=== PATIENT | female | born 1995 | race Caucasian/White ===

== ENCOUNTER 2020-08-23 12:15 | Emergency (ER) | payer MEDICAID, SELFPAY ==
[2020-08-23 12:26] VITALS: BP 164/93; PULSE 83; RESP 16; TEMP 36.6; O2SAT 99; BMI 22.2
[2020-08-23 12:30] VITALS: BP 139/91; PULSE 73; RESP 18; O2SAT 95
--- NOTE | 2020-08-23 12:30 | ED_ITS ---
HPI - Female Genitourinary General: Chief complaint: Vaginal Bleeding Stated complaint: Allergic reaction Time Seen by Provider: 08/23/20 12:25 History of Present Illness: HPI Narrative: The patient is a 25-year-old female who comes to the ER complaining of genital pain for the past several days. She said she was having some mild vaginal discharge several days ago and thought it was a yeast infection and treated it which the discharge improved. She said the pain has increased each day in the past 3 days it has been unbearable. She says she has lesions that she can see as well. She is sexually active with the same male for the past 4 months. She is unsure if he has been exclusive. Associated symptoms: Deny abdominal pain or headache(s) Review of Systems General: Reports: 10 or more systems reviewed and unremarkable except in HPI and below Const: Denies: fatigue Eyes: Denies: change in vision, blurry vision or eye redness ENMT: Denies: throat pain, swelling of lips/tongue, ear or mastoid pain or nasal congestion Card: Denies: chest pain, palpitations, irregular heart rhythm, edema, dyspnea on exertion or orthopnea Resp: Denies: dyspnea, productive cough or non-productive cough GI: Denies: abdominal pain, diarrhea or GI cramping : Reports: genital lesions and other (labial pain); Denies: flank pain, difficulty voiding, urinary frequency or urinary urgency Musc: Denies: neck pain, back pain, extremity pain, joint pain, joint redness, limited range of motion or muscle weakness Skin/Breast: Denies: rash, pruritus, erythema, skin pain or skin tenderness Neuro: Denies: headache(s), numbness in extremities, weakness in extremities, sensory changes, difficulty walking, dizziness, confusion or Slurred speech present Psych: Denies: anxiety or depression Endo: Denies: polyuria All/Imm: Denies: urticaria, throat swelling or tongue swelling Physical Exam Const: COMMON NORMALS: no acute distress, average body habitus, patient oriented x3, no limitations, healthy appearing, alert and well nourished GENERAL APPEARANCE: cooperative, comfortable, well kempt and well developed ORIENTATION/CONSCIOUSNESS: Yes awake, Yes oriented to person, Yes oriented to place and Yes oriented to time HENMT: COMMON NORMALS: normocephalic, external ears normal and Normal external nose present HEAD & SCALP: normal to inspection and normocephalic NOSE: Normal external nose present EXTERNAL EAR: Yes external ears normal MOUTH: Normal oral and palatal mucosa present THROAT: posterior oropharynx normal Eye: COMMON NORMALS: Equal, round and reactive pupils present and EOMs intact bilaterally GENERAL EYE: appearance normal, both eyes and all related structures PUPIL: Yes Equal, round and reactive pupils present Neck/C-Spine: COMMON NORMALS: full ROM, no lymphadenopathy, no meningeal signs and no JVD GENERAL: Yes normal visual inspection Lymph: LYMPHATIC: no lymphadenopathy noted Chest: COMMONS NORMALS: normal inspection of the chest and normal palpation of entire chest wall Resp: COMMON NORMALS: normal respiratory effort, No retractions, No use of accessory muscles, clear to auscultation bilaterally and percussion normal EFFORT & INSPECTION: Yes able to speak in complete sentences AUSCULTATION: clear to auscultation bilaterally PERCUSSION: percussion normal Cardio: COMMON NORMALS: no JVD, regular rate, regular rhythm, S1 normal heart sound present, S2 normal heart sound present and Peripheral pulses 2+ throughout RATE: regular rate RHYTHM: regular rhythm HEART SOUNDS: S1 normal heart sound present and S2 normal heart sound present PERIPHERAL PULSES: Peripheral pulses 2+ throughout GI: COMMON NORMALS: Normal to inspection, nondistended, normoactive bowel sounds present, Soft to palpation, non-tender and no masses INSPECTION: Yes normal to inspection PALPATION: Yes Soft to palpation : COMMON NORMALS: Yes no CVA tenderness BLADDER/KIDNEY EXAM: Yes no CVA tenderness SPECULUM EXAM - CERVIX: No Cervical tenderness present BIMANUAL EXAM - VAGINA & UTERUS: No Cervical tenderness present OB/EXTERNAL & SP ECULUM: herpetic lesions OTHER: no cervical motion tenderness. Herpetic lesions on labia minora posteriorly Back/Pelvis: COMMON NORMALS: no CVA tenderness, thoracic and lumbar spine normal to inspection, no thoracic nor lumbar tenderness and thoraco-lumbar ROM normal Extremity: COMMON NORMALS: normal to inspection, full ROM, capillary refill normal, no joint enlargement and no pedal edema GENERAL: Yes normal exam except as noted Neuro: COMMON NORMALS: patient oriented x3, CN's II-XII intact bilaterally, moves all extremities, no focal motor deficits, no sensory deficits noted and gait normal SENSORIUM/ORIENTATION: Yes alert, Yes oriented to person, Yes oriented to place and Yes oriented to time MENINGEAL SIGNS: Yes no meningeal signs Psych: COMMON NORMALS: mental status grossly normal, Normal thought process present, cooperative, normal affect and speech normal APPEARANCE: Yes well kempt ATTITUDE: Yes calm SPEECH: Yes normal speech THOUGHT PROCESS: Normal thought process present Skin: COMMON NORMALS: no rashes or lesions noted GENERAL SKIN EXAM: no rashes or lesions noted Course Vital Signs: Vital signs: Vital Signs Temperature 97.9 F 08/23/20 12:26 Pulse Rate 62 08/23/20 13:21 Respiratory Rate 18 08/23/20 13:21 Blood Pressure 125/85 08/23/20 13:21 Pulse Oximetry 96 08/23/20 13:21 MDM - Female MDM Narrative: Medical decision making narrative: The patient was diagnosed with acute herpetic genital infection today. Given Cipro and acyclovir to discharge home with. Primary care in a week. Discussed sexual safe practices. Lab Data: Labs: Lab Results 08/23/20 08/23/20 Range/Units 13:10 13:10 HCG, Qual Negative (Negative) Urine Color Yellow (Yellow) Urine Appearance Clear (CLEAR) Urine pH 7 (5-7) Ur Specific Gravit y 1.010 (1.005-1.030) Urine Protein Neg (Negative) Urine Glucose (UA) Norm (Normal) Urine Ketones Negative (Negative) Urine Blood Neg (Negative) Urine Nitrate Negative (Negative) Urine Bilirubin Neg (Negative) Urine Urobilinogen 1 H (Negative) mg/dL Ur Leukocyte Aubrie ase Trace H (Negative) Urine RBC 0-4 H (0-2) /hpf Urine WBC 5-10 H (0-5) /hpf Ur Squamous Epith Cells 10-15 H (0-5) /hpf Amorphous Sediment Not Reportable Urine Bacteria Trace (NONE) /hpf Discharge Plan Discharge Patient Disposition: Home Clinical Impression: Genital herpes Condition: Stable Prescriptions: New acyclovir 400 mg tablet 400 mg PO TID Qty: 30 RF: 0 ciprofloxacin HCl 500 mg tablet 500 mg PO Q12H Qty: 10 RF: 0 Discharge Orders: Discharge ED (Routine); Ordered 08/23/20 Ordered By: Lamont Esposito Referrals: Yan Ballard MD [Primary Care Provider] - Discharge Diet: Advance as tolerated Discharge Activity: Resume usual activity Patient Instructions: Genital Herpes - Female, Opioid Safety Activity Restrictions/Additional Instructions: You came in with pain to the genital region and it is likely a herpes infection. Please take the acyclovir as it battles the herpes virus and may speed your recovery albeit slowly. Take the antibiotics as well to treat a small likely urine infection and return to the ER with worsening symptoms otherwise follow-up with your primary care physician in a week or so for a recheck. Abstain from sexual activity until lesions are healed and use protection thereafter. Please keep in mind herpes can be spread even when no signs of infection are present. Coding Level of Care Code ED Vehicle Modification Technician for Igor Fwd Exam Comprehensive
[2020-08-23 13:21] VITALS: BP 125/85; PULSE 62; RESP 18; O2SAT 96
[2020-08-23 13:37] LABS: HCG Qualitative Urine. Negative (Negative)
[2020-08-23 13:52] LABS: Add Urine Microscopic? YES; Bilirubin Urine Neg (Negative); Blood Urine Neg (Negative); Glucose Urine UA Norm (Normal); Ketones Urine Negative (Negative); Leukocyte Esterase Urine Trace (Negative); Nitrate Urine Negative (Negative); Protein Urine Neg (Negative); Urine Appearance Clear (CLEAR); Urine Color Yellow (Yellow); Urobilinogen Urine 1 mg/dL (Negative); pH Urine 7 (5-7)
[2020-08-23 13:53] LABS: Add Urine Culture? No; Bacteria Urine TRACE /hpf; RBC Urine 0-4 /hpf (0-2)
[2020-08-23] MEDS: acyclovir 400 mg Tablet PO (14:11)
[2020-08-23] MEDS: lidocaine 2% viscous 15 mL UDC MUCOUS MEM (14:23)
[2020-08-23 15:00] VITALS: BP 131/82; PULSE 67; RESP 18; O2SAT 96
[2020-08-23] MEDS: ciprofloxacin 500 mg Tablet PO (15:28)
[2020-08-23 16:02] VITALS: BP 131/82; PULSE 81; RESP 18; TEMP 37.2; O2SAT 99
== END 2020-08-23 16:04 | disposition home or self-care (01) ==
PROVIDERS: Emergency Provider Family Medicine; PCP Family Medicine
DX: A60.04 Herpesviral vulvovaginitis (principal)
CPT/HCPCS: 12345; 81001; 81025; 87081; 87210; 87529; 87591; 99281; 99283; J8499

== ENCOUNTER → 2020-10-09 09:34 | Outpatient (BNVA) | payer MEDICAID, SELFPAY | PROVIDERS: PCP Family Medicine; Visit Provider Obstetrics & Gynecology | DX: Z34.01 Encounter for supervision of normal first pregnancy, first trimester (principal) | CPT/HCPCS: 80307; 84315; 85025; 86592; 86762; 86803; 86850; 86900; 87086; 87340; 87491; 87591; 87806 ==

== ENCOUNTER → 2020-10-23 09:14 | Outpatient (BNVA) | payer MEDICAID, SELFPAY | PROVIDERS: PCP Family Medicine; Visit Provider Obstetrics & Gynecology | DX: Z34.01 Encounter for supervision of normal first pregnancy, first trimester (principal) | CPT/HCPCS: 84315; 87491; 87591; 88175 ==

== ENCOUNTER → 2020-11-23 12:59 | Outpatient (BNVA) | payer MEDICAID, SELFPAY | PROVIDERS: PCP Family Medicine; Visit Provider Nurse Practitioner Women's Health | DX: O21.9 Vomiting of pregnancy, unspecified (principal) | CPT/HCPCS: 81000 ==

== ENCOUNTER → 2020-12-05 08:14 | Outpatient (BNVA) | payer MEDICAID, SELFPAY | PROVIDERS: PCP Family Medicine; Visit Provider Obstetrics & Gynecology | DX: Z34.80 Encounter for supervision of other normal pregnancy, unspecified trimester (principal); R39.9 Unspecified symptoms and signs involving the genitourinary system | CPT/HCPCS: 81000; 87077; 87086; 87184 ==

== ENCOUNTER → 2020-12-29 08:25 | Outpatient (BNVA) | payer MEDICAID, SELFPAY | PROVIDERS: PCP Family Medicine; Visit Provider Obstetrics & Gynecology | DX: O21.9 Vomiting of pregnancy, unspecified (principal) | CPT/HCPCS: 81000 ==

== ENCOUNTER → 2021-01-18 11:15 | Outpatient (BNVA) | payer MEDICAID, SELFPAY | PROVIDERS: PCP Family Medicine; Visit Provider Nurse Practitioner Women's Health | DX: Z34.01 Encounter for supervision of normal first pregnancy, first trimester (principal) | CPT/HCPCS: 81000 ==

== ENCOUNTER → 2021-02-16 14:23 | Outpatient (BNVA) | payer MEDICAID, SELFPAY | PROVIDERS: PCP Family Medicine; Visit Provider Obstetrics & Gynecology | DX: Z34.01 Encounter for supervision of normal first pregnancy, first trimester (principal) | CPT/HCPCS: 81000; 82950; 85025 ==

== ENCOUNTER → 2021-03-02 07:55 | Outpatient (BNVA) | payer MEDICAID, SELFPAY | PROVIDERS: PCP Family Medicine; Visit Provider Obstetrics & Gynecology | DX: Z34.01 Encounter for supervision of normal first pregnancy, first trimester (principal) | CPT/HCPCS: 81000 ==

== ENCOUNTER → 2021-03-15 09:51 | Outpatient (BNVA) | payer MEDICAID, SELFPAY | PROVIDERS: PCP Family Medicine; Visit Provider Obstetrics & Gynecology | DX: Z34.01 Encounter for supervision of normal first pregnancy, first trimester (principal) | CPT/HCPCS: 81000 ==

== ENCOUNTER → 2021-03-29 10:53 | Outpatient (BNVA) | payer MEDICAID, SELFPAY | PROVIDERS: PCP Family Medicine; Visit Provider Nurse Practitioner Women's Health | DX: Z34.01 Encounter for supervision of normal first pregnancy, first trimester (principal) | CPT/HCPCS: 81000 ==

== ENCOUNTER → 2021-04-12 08:33 | Outpatient (BNVA) | payer MEDICAID, SELFPAY | PROVIDERS: PCP Family Medicine; Visit Provider Obstetrics & Gynecology | DX: Z34.01 Encounter for supervision of normal first pregnancy, first trimester (principal) | CPT/HCPCS: 81000; 87081 ==

== ENCOUNTER → 2021-04-19 08:56 | Outpatient (BNVA) | payer MEDICAID, SELFPAY | PROVIDERS: PCP Family Medicine; Visit Provider Obstetrics & Gynecology | DX: Z34.01 Encounter for supervision of normal first pregnancy, first trimester (principal); A60.9 Anogenital herpesviral infection, unspecified | CPT/HCPCS: 81000 ==

== ENCOUNTER → 2021-04-26 09:22 | Outpatient (BNVA) | payer MEDICAID, SELFPAY | PROVIDERS: PCP Family Medicine; Visit Provider Obstetrics & Gynecology | DX: Z34.01 Encounter for supervision of normal first pregnancy, first trimester (principal) | CPT/HCPCS: 81000 ==

== ENCOUNTER 2021-05-03 13:18 | Outpatient (CLI) | payer MEDICAID, SELFPAY ==
[2021-05-03] VITALS (7 sets, daily range): BP systolic 108–137; BP diastolic 70–89; PULSE 82–101; RESP 17; TEMP 36.3; BMI 27.1
[2021-05-03 13:54] LABS: Add Urine Microscopic? NO; Charge for UA Resulting for Rev
[2021-05-03 14:00] LABS: Basophils % 0.2 %; Eosinophils # 0.1 10^3/uL (0.0-0.8); Eosinophils % 0.6 %; Hematocrit 35.6 % (37.0-47.0); Hemoglobin 11.8 g/dL (11.5-15.3); Lymphocytes % 19.4 %; Mean Corpuscular HGB Conc 33.1 g/dL (30.0-36.0); Mean Corpuscular Volume 84.4 fl (81-99); Monocytes # 0.7 10^3/uL (0.2-0.9); Monocytes % 6.5 %; Neutrophils # 7.54 10^3/uL (1.8-7.7); Neutrophils % 72.6 %; Nucleated Red Blood Cells % 0 %; Platelet Count 205 10^3/cmm (130-400); Red Blood Count 4.22 10^6/uL (4.1-5.3); Red Cell Distribution Width 12.5 % (12.1-15.1); White Blood Count 10.4 10^3/uL (4.0-10.0)
[2021-05-03 14:20] LABS: Bilirubin Urine Neg (Negative); Blood Urine Neg (Negative); Glucose Urine UA Norm (Normal); Ketones Urine Negative (Negative); Leukocyte Esterase Urine Negative (Negative); Nitrate Urine Negative (Negative); Protein Urine Neg (Negative); Urine Appearance Clear (CLEAR); Urine Color Yellow (Yellow); Urobilinogen Urine Norm (Negative); pH Urine 7 (5-7)
[2021-05-03 14:30] LABS: Alanine Aminotransferase 6 U/L (0-33); Albumin Level 3.5 g/dL (3.5-5.2); Alkaline Phosphatase 110 IU/L (35-105); Anion Gap 16.7 (5-19); Aspartate Amino Transferase 11 U/L (0-32); Blood Urea Nitrogen 5 mg/dL (6-20); Calcium 8.3 mg/dL (8.5-10.5); Carbon Dioxide 18 mmol/L (22-29); Chloride 103 mmol/L (98-107); Globulin 2.7 g/dL (1.3-4.6); Glomerular Filtration Rate 146.9 mL/min (90-130); Glucose 111 mg/dL (65-115); Osmolality Calculated 276 mOsm/kg (285-295); Potassium 3.7 mmol/L (3.5-5.1); Sodium 134 mmol/L (136-145); Total Bilirubin 0.3 mg/dL (0.15-1.2); Total Protein 6.2 g/dL (6.6-8.7); Uric Acid 3.3 mg/dL (2.4-5.7)
[2021-05-03 14:39] LABS: UPRO/UCREAT Ratio 0.21 mg/mg CR; Urine Creatinine 19 mg/dL (28-217); Urine Protein Random 4 mg/dL
== END 2021-05-03 15:10 | disposition home or self-care (01) ==
LOC: OPOB 13:27 → OBGYN 13:30
PROVIDERS: PCP Family Medicine; Visit Provider Obstetrics & Gynecology
DX: O99.891 Other specified diseases and conditions complicating pregnancy (principal); R03.0 Elevated blood-pressure reading, without diagnosis of hypertension; Z20.822 Contact with and (suspected) exposure to COVID-19
CPT/HCPCS: 36415; 59025; 80053; 81000; 81003; 82570; 84156; 84550; 85025; 87635; 99211

== ENCOUNTER 2021-05-04 18:33 | Inpatient (IN) | payer MEDICAID, SELFPAY ==
[2021-05-04] VITALS (13 sets, daily range): BP systolic 116–150; BP diastolic 67–96; PULSE 64–103; RESP 16; TEMP 36.6; BMI 27.1
[2021-05-04 20:49] LABS: Basophils % 0.2 %; Eosinophils # 0.1 10^3/uL (0.0-0.8); Eosinophils % 0.9 %; Hematocrit 34.7 % (37.0-47.0); Hemoglobin 11.8 g/dL (11.5-15.3); Lymphocytes # 2.3 10^3/uL (0.8-4.8); Lymphocytes % 23.4 %; Mean Corpuscular Hemoglobin 28.9 pg (28.0-34.0); Mean Platelet Volume 10.8 fL (7.4-10.4); Monocytes # 0.6 10^3/uL (0.2-0.9); Monocytes % 5.9 %; Neutrophils # 6.77 10^3/uL (1.8-7.7); Neutrophils % 69.1 %; Nucleated Red Blood Cells % 0 %; Platelet Count 206 10^3/cmm (130-400); Red Blood Count 4.08 10^6/uL (4.1-5.3); Red Cell Distribution Width 12.6 % (12.1-15.1); White Blood Count 9.8 10^3/uL (4.0-10.0)
[2021-05-04] MEDS: miSOPROStol 100 mcg tablet 25 MCG VAGINAL (21:45)
[2021-05-05] VITALS (15 sets, daily range): BP systolic 105–141; BP diastolic 62–89; PULSE 62–98; RESP 16–18; TEMP 36.4–36.9
[2021-05-05] MEDS: miSOPROStol 100 mcg tablet 25 MCG VAGINAL (02:24)
[2021-05-05] MEDS: lactated ringers 1,000 ML 999 ML IV (05:11)
--- NOTE | 2021-05-05 06:20 | ANES.PROC ---
Anesthesia Procedures Procedure/Date: 05/05/21 Other Information: Patient dilated to 10. Diamond agrees to intrathecal. Sterile prep and drape. lido 1% local at L3-4. Introducer needle and #25 Pencan introduced with CSF return. fentanyl 0.5 cc and 0.5 cc of 0.75% marcaine given with excellent relief. Pt tolerated well
--- NOTE | 2021-05-05 07:00 | PM.OPHPUD ---
Labor & Delivery H&P Update Date of Procedure: May 05, 2021 Date H&P Performed: 05/03/21 H&P update information: I have reviewed H&P completed within last 30 days, I have examined patient prior to procedure and No changes to prior documentation Changes to previous documentation: The patient is here for induction at term. No cervical change Admission Diagnosis: IUP at 39 2/7
--- NOTE | 2021-05-05 07:02 | PM.DELIVERY ---
Delivery Note: Date of delivery: May 05, 2021 Pre-delivery diagnoses: iup at 39 2/7 Post-delivery diagnoses: iup @ 39 3/7 delivered Procedure: Op report anesthesia: Other (intra-thecal) Delivering Physician: naomie Estimated blood loss (mL): 10 Findings: term male in cephalic presentation Pre-Delivery Course: The patient was admitted for cytotec induction. She received two doses and about 2 1/2 hours after the placement of the second dose, she started to have pain. She was found to be dilated to 7 cm. An epidural was ordered. She had complete cervical dilation prior to epidural. For this reason, an intrathecal block was placed. After placement of the intrathecal block, the heart rate was found to be in the 60's. AROM of clear fluid was performed to possibly hasten delivery and resolve the deceleration. The heart rate fell to the 60's and in spite of all resuscitative efforts, it stayed there for 5 minutes. Anesthesia was still here and he arrived and gave the patient a dose of ephedrine as she was wheeled back to the OR for a stat . Peds was notified. She was moved onto the OR bed and heart tones were checked prior to induction of anesthesia. They were in the 150's. We remained in the room and were set up to do either a or vaginal delivery. With contractions, the heart rate would drop to the 60's and return back to the 150's. I placed a vacuum to assist with hastening the delivery. She baby moved from the +2 to +3 station. There was a pop off after about 20 seconds. The heart rate remained normal in the 150's after that. She was allowed to push with contractions. Peds arrived as the baby was . Delivery: The patient had complete cervical dilation and began to push. The head delivered in the SELAM position over an intact perineum under intrathecal anesthesia. The nose and mouth were bulb suctioned. The shoulders and body delivered atraumatically. The baby was placed onto the mother's abdomen. The baby had poor tone. The cord was quickly clamped and cut and given to the waiting biodiesel production associate and nurses for resusitation. The placenta delivered spontaneously. It was inspected and found to be intact. There was a true knot in the cord. Inspection of the perineum revealed no lacerations. Estimated blood loss 10 mL. Apgars on baby were to at 1 minute and 7 at 5 minutes and 8 at 10 minutes. Weight of baby is 7 pounds 8 ounces. By 20 minutes of life, the baby was allowed to be skin to skin with mom and was doing well. Mother and baby were stable post delivery. Coding Level of Care Code Acute Maintenance Of Way Clerk for Igor Hirsch
--- NOTE | 2021-05-05 07:20 | PC.NURSE ---
MOVED FROM OBOR2 TO OB9 VIA BED. ORIENTED TO ROOM/CALL LIGHT. INSTRUCTED TO CALL NURSING STAFF FOR ASSISTANCE TO BATHROOM THE FIRST TIME.
--- NOTE | 2021-05-05 10:03 | ANE.PACU2 ---
Inpatient post-anesthesia follow up: Airway intact: Yes Vital signs: Temperature 98.4 F Pulse Rate 64 Respiratory Rate 16 Blood Pressure 141/89 Pulse Oximetry Oxygen Delivery Me thod Room Air Oxygen Flow Rate Fraction of Inspir ed Oxygen Hydration adequate: Yes Nausea and vomiting: No Pain level: 2 Mental status: Baseline
[2021-05-05] MEDS: prenatal vitamin Capsule 1 CAP PO (10:36)
[2021-05-05] MEDS: ibuprofen 800 mg tablet PO ×3 (10:36→21:19)
[2021-05-05] MEDS: docusate sodium 100 mg Capsule PO ×2 (10:36→18:50)
[2021-05-05 19:45] LABS: Hematocrit 33.9 % (37.0-47.0); Hemoglobin 11.4 g/dL (11.5-15.3); Mean Corpuscular HGB Conc 33.6 g/dL (30.0-36.0); Mean Corpuscular Hemoglobin 28.4 pg (28.0-34.0); Mean Corpuscular Volume 84.5 fl (81-99); Mean Platelet Volume 10.9 fL (7.4-10.4); Platelet Count 202 10^3/cmm (130-400); Red Blood Count 4.01 10^6/uL (4.1-5.3); Red Cell Distribution Width 12.5 % (12.1-15.1); White Blood Count 16.7 10^3/uL (4.0-10.0)
[2021-05-06 00:48] VITALS: BP 120/87; PULSE 80; RESP 18; TEMP 36.5
[2021-05-06 04:00] VITALS: BP 127/82; PULSE 53; RESP 18; TEMP 36.6
--- NOTE | 2021-05-06 05:24 | P.PN_ITS ---
Vitals/I&O/Wt Last Vital Signs Temp 97.7 F 05/06/21 00:48 Pulse 80 05/06/21 00:48 Resp 18 05/06/21 00:48 BP 120/87 05/06/21 00:48 Weight last 48 hrs Weight 189 lb Physical Exam Narrative: EXAM NARRATIVE: The patient is doing well this morning. No concerns. Const: COMMON NORMALS: no acute distress, average body habitus, patient oriented x3, no limitations, healthy appearing and alert GENERAL APPEARANCE: cooperative, comfortable, well kempt and well developed ORIENTATION/CONSCIOUSNESS: Yes awake, Yes oriented to person, Yes oriented to place and Yes oriented to time Resp: COMMON NORMALS: normal respiratory effort EFFORT & INSPECTION: Yes able to speak in complete sentences GI: COMMON NORMALS: Soft to palpation and non-tender PALPATION: Yes Soft to palpation : COMMON NORMALS: Yes normal external appearance, Yes normal appearance of the vagina, Yes normal appearance of the cervix and Yes normal bimanual exam BIMANUAL EXAM - VAGINA & UTERUS: Yes normal bimanual exam Extremity: COMMON NORMALS: no calf tenderness Neuro: COMMON NORMALS: patient oriented x3 SENSORIUM/ORIENTATION: Yes alert, Yes oriented to person, Yes oriented to place and Yes oriented to time Psych: APPEARANCE: Yes well kempt Data : 05/05/21 19:25 A&P Assessment and plan (1) state: Status: Acute Attestations Medical Necessity Statement*: The patient has had 2 midnights already Coding Level of Care Code Acute Afternoon Nanny for Chg Fwd Diagnoses state Z39.2
[2021-05-06] MEDS: prenatal vitamin Capsule 1 CAP PO (08:18)
[2021-05-06] MEDS: docusate sodium 100 mg Capsule PO (08:18)
[2021-05-06] MEDS: ibuprofen 800 mg tablet PO ×3 (08:18→21:53)
[2021-05-06 08:38] VITALS: BP 132/73; PULSE 64; RESP 14; TEMP 36.7; O2SAT 97
[2021-05-06 16:45] VITALS: BP 124/82; PULSE 81; RESP 15; TEMP 36.6; O2SAT 98
[2021-05-06 21:48] VITALS: BP 116/79; PULSE 75; RESP 16; TEMP 36.9
[2021-05-07 05:01] VITALS: BP 129/83; PULSE 81; RESP 16; TEMP 36.8
--- NOTE | 2021-05-07 08:01 | PM.DCS ---
Discharge Providers Date of Admission: 05/04/21 18:33 Date of Discharge: May 07, 2021 Attending Provider at Admission: Maral Diamond MD Attending Provider at Discharge: Maral Diamond MD Primary Care Provider: Yan Ballard MD Diagnoses at Discharge Discharge Diagnosis (1) state: Status: Acute Reason for Visit Reason for Visit: induction Hospital Course Hospital Course The presented for induction at term. She had spontaneous delivery of a term male . The baby had some difficulty with transioning and was started on antibiotics. Mom and baby did well and were ready for discharge on day #2 Physical Exam Narrative: EXAM NARRATIVE: The patient is doing well this morning. She is ready for discharge Const: COMMON NORMALS: no acute distress, average body habitus, patient oriented x3, no limitations, healthy appearing and alert Resp: COMMON NORMALS: normal respiratory effort EFFORT & INSPECTION: Yes able to speak in complete sentences GI: COMMON NORMALS: Soft to palpation and non-tender PALPATION: Yes Soft to palpation Extremity: COMMON NORMALS: no calf tenderness Neuro: COMMON NORMALS: patient oriented x3 SENSORIUM/ORIENTATION: Yes alert Discharge Data Vitals: Last Vital Signs Temp 97.8 F 05/06/21 16:45 Pulse 81 05/06/21 16:45 Resp 15 05/06/21 16:45 BP 124/82 05/06/21 16:45 Pulse Ox 98 05/06/21 16:45 Discharge Plan Discharge Patient Disposition: Home Condition: Stable Prescriptions: Continued Gummies 400 mcg-35 mg- 25 mg-5 mg tablet,chewable 2 tab PO DAILY RF: 0 valacyclovir 1 gram tablet 1,000 mg PO BID RF: 0 Discharge Orders: Discharge Order (Routine); Ordered 05/07/21 Ordered By: Maral Diamond Patient Instructions: Depression (DC), Bleeding (DC), Preeclampsia and Eclampsia After Delivery (GEN), OB Discharge Report, OB Food/Drug Interaction Guide, Opioid Safety, OB Home Care, OB Vaginal Deliveries - [facility] Discharge Attestations Time Spent in Discharge Care*: less than 30 min Quality Metrics Clinical Quality Measures During this hospital stay, did patient experience: None Coding Level of Care Code Acute Chg FW DC note Diagnoses state Z39.2
[2021-05-07 11:30] VITALS: BP 126/82; PULSE 62; RESP 16; TEMP 36.7; O2SAT 97
== END 2021-05-07 11:30 | disposition home or self-care (01) | DRG 807 ==
LOC: OPOB 18:43 → OBGYN 18:45 → OPOB 05-05 05:48 → OBGYN 05-05 05:48
PROVIDERS: Admitting Provider Obstetrics & Gynecology; PCP Family Medicine; Visit Provider Obstetrics & Gynecology
DX: O69.2XX0 Labor and delivery complicated by other cord entanglement, with compression, not applicable or unspecified (principal); Z37.0 Single live birth; O76 Abnormality in fetal heart rate and rhythm complicating labor and delivery; Z3A.39 39 weeks gestation of pregnancy
CPT/HCPCS: 36415; 59025; 59409; 85025; 85027; J3010

== ENCOUNTER → 2023-09-09 08:02 | Outpatient (BNVA) | payer SELFPAY | PROVIDERS: PCP Family Medicine; Visit Provider Nurse Practitioner Women's Health | DX: Z34.01 Encounter for supervision of normal first pregnancy, first trimester (principal) | CPT/HCPCS: 81025 ==

== ENCOUNTER → 2024-04-05 09:36 | Outpatient (BNVA) | payer OTHER, SELFPAY | PROVIDERS: PCP Family Medicine; Visit Provider Nurse Practitioner | DX: Z98.890 Other specified postprocedural states (principal); E06.3 Autoimmune thyroiditis | CPT/HCPCS: 84439; 84443; 84481 ==

== ENCOUNTER → 2024-05-11 09:09 | Outpatient (BNVA) | payer OTHER, SELFPAY | PROVIDERS: PCP Family Medicine; Visit Provider Nurse Practitioner | DX: E06.3 Autoimmune thyroiditis (principal) | CPT/HCPCS: 84439; 84443; 84481 ==

== ENCOUNTER → 2024-06-03 08:33 | Outpatient (BNVA) | payer OTHER, SELFPAY | PROVIDERS: PCP Family Medicine; Visit Provider Nurse Practitioner | DX: E06.3 Autoimmune thyroiditis (principal) | CPT/HCPCS: 84439; 84443; 84481 ==

== ENCOUNTER → 2024-06-28 09:18 | Outpatient (BNVA) | payer OTHER, SELFPAY | PROVIDERS: PCP Family Medicine; Visit Provider Nurse Practitioner | DX: E06.3 Autoimmune thyroiditis (principal); E03.9 Hypothyroidism, unspecified | CPT/HCPCS: 84439; 84443; 84481 ==

== ENCOUNTER → 2024-07-26 09:21 | Outpatient (BNVA) | payer OTHER, SELFPAY | PROVIDERS: PCP Family Medicine; Visit Provider Nurse Practitioner | DX: E06.3 Autoimmune thyroiditis (principal); E03.9 Hypothyroidism, unspecified | CPT/HCPCS: 84439; 84443; 84481 ==

== ENCOUNTER 2024-11-27 11:49 | Outpatient (CLI) | payer OTHER, SELFPAY ==
[2024-11-27 12:08] VITALS: BP 125/73; PULSE 68
[2024-11-27 12:10] VITALS: BMI 25.7
[2024-11-27 12:28] VITALS: BP 110/67; PULSE 62
== END 2024-11-27 12:35 | disposition home or self-care (01) ==
LOC: OPOB 11:51 → OBGYN 11:52
PROVIDERS: PCP Family Medicine; Visit Provider Family Medicine
DX: O26.899 Other specified pregnancy related conditions, unspecified trimester (principal); Z3A.00 Weeks of gestation of pregnancy not specified; N89.8 Other specified noninflammatory disorders of vagina
CPT/HCPCS: 59025; 83986; 99211

== ENCOUNTER → 2025-05-03 11:12 | Outpatient (BNVA) | payer OTHER, SELFPAY | PROVIDERS: PCP Nurse Practitioner; Visit Provider Nurse Practitioner | DX: E06.3 Autoimmune thyroiditis (principal); E55.9 Vitamin D deficiency, unspecified; E61.1 Iron deficiency | CPT/HCPCS: 80053; 82306; 83550; 84439; 84443; 84481 ==